=== PATIENT | male | born 1960 | race African-American/Black ===

== ENCOUNTER 2023-10-15 13:35 | Emergency (ER) | payer OTHER ==
[~2023-10-15] VITALS: Ht 190.5 cm; Wt 145.1 kg
[2023-10-15 13:39] VITALS: BP 121/91; PULSE 110; RESP 18; TEMP 97.9; O2SAT 97
[2023-10-15] MEDS: KETOROLAC 60 MG/2 ML VIAL IM ONE (14:05)
[2023-10-15 16:15] VITALS: BP 129/82; PULSE 88; RESP 18; TEMP 98; O2SAT 98
[2023-10-15] MEDS ORDERED: TRAM-748 PO (17:25)
[2023-10-15] MEDS ORDERED: NAPR-1704 PO (17:25)
== END 2023-10-15 16:15 | disposition home or self-care (01) ==
LOC: MED 13:35
DX: S09.90XA Unspecified injury of head, initial encounter (principal); S39.012A Strain of muscle, fascia and tendon of lower back, initial encounter; W01.198A Fall on same level from slipping, tripping and stumbling with subsequent striking against other object, initial encounter; Y92.89 Other specified places as the place of occurrence of the external cause; Y93.89 Activity, other specified; Y99.8 Other external cause status
CPT/HCPCS: 70450; 71045; 72100; 96372; 99285; J1885